=== PATIENT | male | born 1990 ===

== ENCOUNTER 2017-10-16 16:20 | Emergency (ER) | payer SELFPAY ==
[2017-10-16] MEDS ORDERED: TORADOL IM ONE (19:14)
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
--- NOTE | 2017-10-16 20:27 | XRay Report ---
FINAL REPORT EXAM: XR SHOULDER 2+V RT HISTORY: shoulder pain TECHNIQUE: Three views right shoulder PRIORS: None. FINDINGS: No fractures are identified. No dislocation seen. The acromioclavicular joint is intact. Adjacent bony and soft tissue structures are unremarkable. IMPRESSION: Negative shoulder series
--- NOTE | 2017-10-16 20:28 | XRay Report ---
FINAL REPORT EXAM: XR KNEE 3V LT HISTORY: knee pain TECHNIQUE: Left knee three views PRIORS: None. FINDINGS: No fracture is identified. No dislocation seen. No evidence of joint effusion. Patella demonstrates normal positioning. No acute bony abnormality identified. IMPRESSION: Negative knee series
[2017-10-16 21:22] VITALS: BP 126/72
== END 2017-10-16 21:21 | disposition home or self-care (01) ==
LOC: ED 16:20
DX: S86.912A Strain of unspecified muscle(s) and tendon(s) at lower leg level, left leg, initial encounter (principal); S46.911A Strain of unspecified muscle, fascia and tendon at shoulder and upper arm level, right arm, initial encounter; S29.012A Strain of muscle and tendon of back wall of thorax, initial encounter; F17.200 Nicotine dependence, unspecified, uncomplicated; F12.10 Cannabis abuse, uncomplicated; Y04.8XXA Assault by other bodily force, initial encounter; Y93.89 Activity, other specified; Y92.89 Other specified places as the place of occurrence of the external cause; Y99.8 Other external cause status
CPT/HCPCS: 29505; 73030; 73562; 96372; 99282; J1885